=== PATIENT | female | born 1985 | race Two or more races ===

== ENCOUNTER 2023-06-18 22:09 | Emergency (ER) | payer SELFPAY ==
[2023-06-18 22:17] VITALS: BP 111/70; PULSE 68; RESP 19; TEMP 98.7; BMI 22.2
[2023-06-18] MEDS ORDERED: metroNIDAZOLE 500 MG TABLET PO ONE (22:55)
[2023-06-18] MEDS ORDERED: metroNIDAZOLE 250 MG TABLET ONE (23:26)
== END 2023-06-18 23:34 | disposition home or self-care (01) ==
LOC: JER 22:09
DX: R10.13 Epigastric pain (principal); R11.2 Nausea with vomiting, unspecified; R19.7 Diarrhea, unspecified
CPT/HCPCS: 99283-25